=== PATIENT | male | born 1970 | race Caucasian/White ===

== ENCOUNTER 2016-10-13 11:18 | Emergency (ER) | payer OTHER ==
[2016-10-13] MEDS ORDERED: Diphtheria,Pertussis(Acell),Tetanus Vaccine 0.5 ML Syringe IM ONE (11:42)
--- NOTE | 2016-10-14 08:45 | ER ---
Date of Service: 10/13/2016 SUBJECTIVE: The patient presents to the emergency room with complaints of laceration to his upper lip. The patient states that he sustained a laceration while building an assisted living building. He states that they were attempting to line up some boards on a rough when one of the boards struck him in the mouth, and he sustained a laceration to his upper lip with a small amount of penetration completely through the lip and into the oral cavity. The patient denies any malocclusion. He states that he did not experience any decreased level of consciousness, and states that he was not knocked out. He is not experiencing any neck discomfort. PAST MEDICAL HISTORY: None. MEDICATIONS: None. ALLERGIES: NKDA. REVIEW OF SYSTEMS: HEENT: Denies any head trauma other than what was previously mentioned. No blurred vision. No difficulties with hearing. Respiratory: No shortness of breath. Cardiac: Denies any substernal chest pain. Abdomen: Denies any abdominal trauma. Again, his injury is isolated to his upper lip. PHYSICAL EXAMINATION: General: This is a 46-year-old male patient, in no acute distress. Vital Signs: Blood pressure was 169/106, was rechecked manually and was found to be approximately 160/90; pulse rate 79; temperature was 36.2; respiratory rate 16; and O2 saturations 98%. Skin: Warm, pink, and dry. HEENT: The patient has approximately 1.5 cm laceration/vertical incision to his upper lip that does extend through the lip and does have a subcentimeter laceration/puncture wound to the inside of his lip involving this laceration. No obvious malocclusion or dental trauma noted. Lungs: Clear to auscultation. Heart: Regular rate and rhythm. Spine: No midline C-spine, thoracic, or lumbar discomfort noted on palpation. Neurologic: The patient is alert and oriented, answers all questions appropriately. His speech is fluent. His gait is within normal limits. EMERGENCY ROOM COURSE: The upper lip was cleansed with Shur-Clens and normal saline. The patient's face was prepped and draped in the usual sterile fashion. A total of 2 interrupted 5-0 nylon sutures was used to close the external laceration to the lip and 1 interrupted 5-0 nylon suture was used to close the anterior puncture/laceration. The patient tolerated this well. He remained stable in my care in the emergency room. ASSESSMENT: A 1.5 cm [id number]-tty-[id number] laceration to the upper lip with subsequent subcentimeter puncture wound on the inside of said laceration. PLAN: The patient will be discharged. Tylenol or ibuprofen for discomfort. He is to return to the emergency room if he develops any malocclusion, headache, confusion, decreased level of consciousness, neck pain, or other worrisome signs or symptoms. All questions were answered. MWK: 10/14/2016 02:30:59 MODL: 10/14/2016 08:25:14 /[id number]
== END 2016-10-13 12:16 | disposition home or self-care (01) ==
LOC: VM.ED 11:18
DX: S01.511A Laceration without foreign body of lip, initial encounter (principal); W22.8XXA Striking against or struck by other objects, initial encounter; Y92.69 Other specified industrial and construction area as the place of occurrence of the external cause; Y99.0 Civilian activity done for income or pay; Z23 Encounter for immunization
CPT/HCPCS: 12011; 12051; 90471; 90715; 99283